=== PATIENT | male | born 1990 | race Caucasian/White ===

== ENCOUNTER 2016-09-26 02:23 | Emergency (ER) | payer BC ==
[2016-09-26] MEDS ORDERED: ADACEL/BOOSTRIX VACCINE (DIPHTH/PERTUSS/ACELL/TETANUS)0.5ML SYR (90715) As Ordered ONE (03:37)
[2016-09-26] MEDS ORDERED: LIDOCAINE 1% MDV 20ML VIAL As Ordered ONE (06:10)
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
== END 2016-09-26 06:57 | disposition home or self-care (01) ==
LOC: M ED 02:23
DX: S01.511A Laceration without foreign body of lip, initial encounter (principal); X58.XXXA Exposure to other specified factors, initial encounter; Y04.8XXA Assault by other bodily force, initial encounter; Y92.9 Unspecified place or not applicable; Y93.9 Activity, unspecified; Y99.9 Unspecified external cause status

== ENCOUNTER 2016-10-09 10:34 | Emergency (ER) | payer BC ==
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
--- NOTE | 2016-10-09 11:17 | EDDOCDS ---
Physician Documentation [facility] Name: Neville Pozo Age: 26 yrs Sex: Male : 1990 Arrival Date: 10/09/2016 Time: 10:34 Bed 13 Private MD: No Pcp Disposition: 10/09 10:58 I have independently interviewed and examined the patient, and I agree with the sd1 investigation, diagnosis and treatment plan as documented by the Resident. Disposition: 10/09/16 11:08 Discharged to Home/Self Care. Impression: Encounter for removal of sutures. - Condition is Stable. - Discharge Instructions: Suture Removal, Care After. - Medication Reconciliation, Local Pharmacy Hours form. - Follow up: No Pcp; When: As needed; Reason: Continuance of care. - Problem is new. - Symptoms are resolved. - Notes: You were evaluated in the emergency department for suture removal. It appeared that the procedure was tolerated well. Historical: - Allergies: no known allergies; - Home Meds: 1. none - PMHx: none; - PSHx: none; - Social history: Smoking status: Chewing Tobacco No barriers to communication noted, The patient speaks fluent Iraqi, Speaks appropriately for age. - Family history: Not pertinent. - : The pt / caregiver states he / she is not on anticoagulants. Home medication list is obtained from the patient. - Exposure Risk Screening:: None identified. Vital Signs: 10:35 BP 166 / 87; Pulse 86; Resp 18; Temp 98.9; Pulse Ox 99% ; Weight 117.93 kg / 259.99 elp lbs; Height 6 ft. 2 in. (187.96 cm); 10:35 Body Mass Index 33.38 (117.93 kg, 187.96 cm) elp Signatures: Tena Trinh MD MD sd1 Jairo Kim RN RN Regla Guerrero RN RN pml Oosthuizen, Jane, DO DO jo4 MTDD
--- NOTE | 2016-10-11 12:17 | EDDOCDS ---
Physician Documentation [facility] Name: Neville Pozo Age: 26 yrs Sex: Male : 1990 Arrival Date: 10/09/2016 Time: 10:34 Bed 13 Private MD: No Pcp Disposition: 10/09 10:58 I have independently interviewed and examined the patient, and I agree with the sd1 investigation, diagnosis and treatment plan as documented by the Resident. Disposition: 10/09/16 11:08 Discharged to Home/Self Care. Impression: Encounter for removal of sutures. - Condition is Stable. - Discharge Instructions: Suture Removal, Care After. - Medication Reconciliation, Local Pharmacy Hours form. - Follow up: No Pcp; When: As needed; Reason: Continuance of care. - Problem is new. - Symptoms are resolved. - Notes: You were evaluated in the emergency department for suture removal. It appeared that the procedure was tolerated well. Historical: - Allergies: no known allergies; - Home Meds: 1. none - PMHx: none; - PSHx: none; - Social history: Smoking status: Chewing Tobacco No barriers to communication noted, The patient speaks fluent Beninese, Speaks appropriately for age. - Family history: Not pertinent. - : The pt / caregiver states he / she is not on anticoagulants. Home medication list is obtained from the patient. - Exposure Risk Screening:: None identified. Vital Signs: 10:35 BP 166 / 87; Pulse 86; Resp 18; Temp 98.9; Pulse Ox 99% ; Weight 117.93 kg / 259.99 elp lbs; Height 6 ft. 2 in. (187.96 cm); 10:35 Body Mass Index 33.38 (117.93 kg, 187.96 cm) elp MDM: 11:44 Financial registration complete. mm15 11:45 [facility] Payment Agreement was scanned into [employer] and attached to record. mm15 12:38 T-Sheet-- Draft Copy was scanned into [employer] and attached to record. [facility] Signatures: Tena Trinh MD MD sd1 Jairo Kim RN RN bcj Quay, Paulina, RN RN pml McGrath, Marlynn mm15 Tanna Savage DO DO jo4 Hoffert, Sarah se The chart was reviewed and I authenticate all verbal orders and agree with the evaluation and treatment provided.Attachments: 11:45 [facility] Agreement mm15 12:38 T-Sheet-- Draft Copy [facility] Chart Complete MTDD
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
--- NOTE | 2016-10-11 12:17 | EDDOCDS ---
Physician Documentation [facility] Name: Neville Pozo Age: 26 yrs Sex: Male : 1990 Arrival Date: 10/09/2016 Time: 10:34 Bed 13 Private MD: No Pcp Disposition: 10/09 10:58 I have independently interviewed and examined the patient, and I agree with the sd1 investigation, diagnosis and treatment plan as documented by the Resident. Disposition: 10/09/16 11:08 Discharged to Home/Self Care. Impression: Encounter for removal of sutures. - Condition is Stable. - Discharge Instructions: Suture Removal, Care After. - Medication Reconciliation, Local Pharmacy Hours form. - Follow up: No Pcp; When: As needed; Reason: Continuance of care. - Problem is new. - Symptoms are resolved. - Notes: You were evaluated in the emergency department for suture removal. It appeared that the procedure was tolerated well. Historical: - Allergies: no known allergies; - Home Meds: 1. none - PMHx: none; - PSHx: none; - Social history: Smoking status: Chewing Tobacco No barriers to communication noted, The patient speaks fluent [place]ao [place]ome[place], Speaks appropriately for age. - Family history: Not pertinent. - : The pt / caregiver states he / she is not on anticoagulants. Home medication list is obtained from the patient. - Exposure Risk Screening:: None identified. Vital Signs: 10:35 BP 166 / 87; Pulse 86; Resp 18; Temp 98.9; Pulse Ox 99% ; Weight 117.93 kg / 259.99 elp lbs; Height 6 ft. 2 in. (187.96 cm); 10:35 Body Mass Index 33.38 (117.93 kg, 187.96 cm) elp MDM: 11:44 Financial registration complete. mm15 11:45 [facility] Payment Agreement was scanned into [employer] and attached to record. mm15 12:38 T-Sheet-- Draft Copy was scanned into [employer] and attached to record. [facility] Signatures: Tena Trinh MD MD sd1 Jairo Kim RN RN bcj Quay, Paulina, RN RN pml McGrath, Marlynn mm15 Tanna Savage DO DO jo4 Hoffert, Sarah se The chart was reviewed and I authenticate all verbal orders and agree with the evaluation and treatment provided.Attachments: 11:45 [facility] [place] Payment Agreement mm15 12:38 T-Sheet-- Draft Copy [facility] Chart Complete MTDD
== END 2016-10-09 11:16 | disposition home or self-care (01) ==
LOC: M ED 10:34
DX: Z48.02 Encounter for removal of sutures (principal); F17.228 Nicotine dependence, chewing tobacco, with other nicotine-induced disorders

== ENCOUNTER → 2024-12-26 | Outpatient (REF) | payer BC | LOC: M SMT 13:18 | PROVIDERS: ATTEND Urology | DX: Z30.2 Encounter for sterilization (principal) ==

== ENCOUNTER → 2025-02-08 | Outpatient (REF) | payer BC ==
[2025-02-08 10:36] LABS: SEMEN APPEARANCE OPAQUE (OPAQUE); SEMEN VISCOSITY LIQUID (LIQUID); SEMEN VOLUME 2.8 ml (2.0-5.0)
[2025-02-08 10:37] LABS: WBC CONCENTRATION <=1 M/ml (<=1 M/ml)
== END ==
LOC: M SMT 10:02
PROVIDERS: ATTEND Urology
DX: Z30.2 Encounter for sterilization (principal)